=== PATIENT | female | born 2000 | race Hispanic/Latino ===

== ENCOUNTER 2020-12-23 15:20 | Outpatient (CLI) | payer OTHER | END 2020-12-23 15:21 | disposition home or self-care (01) | LOC: CSHULT 15:20 | PROVIDERS: ATTEND Family Medicine | DX: Z34.03 Encounter for supervision of normal first pregnancy, third trimester (principal) | CPT/HCPCS: 76805 ==

== ENCOUNTER 2021-11-05 13:36 | Emergency (ER) | payer OTHER ==
[2021-11-05 14:15] LABS: Bilirubin Neg (Negative); Blood, Urine Negative (Negative); Glucose, Urine (Dipstick) Normal (Negative); Ketone, Urine 5 mg/dL (Negative); Leukocyte 500 (Negative); Nitrite Negative (Negative); Protein, Urine (Dipstick) 15 mg/dl (Neg-Trace); Specific Gravity, Urine 1.025 (1.002-1.036); Urobilinogen Normal mg/dL (Less than 2)
[2021-11-05 14:19] LABS: Pregnancy Test - Urine (BHCG) POSITIVE (Negative); Pregu Control Background? CLEAR/WHITE (CLR/WHITE); Pregu Control Bar Appear? YES (CONTROL BAR); Specific Gravity 1.025 (1.002-1.036)
[2021-11-05 14:30] LABS: Bacteria/HPF None Seen HPF (None Seen); Mucous/LPF 1+ LPF (<2+); RBC/HPF None Seen HPF (0-3)
[2021-11-05 14:36] LABS: Clarity Hazy (Clear)
[2021-11-05 15:18] LABS: #Monocytes 0.4 10x3/uL (0.0-1.1); #Neutrophils 5.9 10x3/uL (1.5-8.4); %Basophils 0.2 % (0.0-2.0); %Eosinophils 0.2 % (0.0-6.0); %Lymphocytes 20.7 % (18.0-47.0); %Monocytes 5.5 % (0.0-10.0); %Neutrophils 73.3 % (40.0-75.0); Hemoglobin 13.3 g/dL (12.0-15.5); Mean Corpuscular HGB CONC 35.1 g/dL (32.0-36.0); Mean Corpuscular Hemoglobin 31.4 pg (27.0-33.0); Mean Corpuscular Volume 89.6 fl (81.6-98.3); Mean Platelet Volume 12.1 fl (7.4-10.4); Platelet Count 230 10x3/uL (150-450); RBC Distribution Width 12.7 % (11.5-14.5); Red Blood Cell (RBC) Count 4.23 10x6/uL (3.90-5.03); White Blood Cell (WBC) Count 8.1 10x3/uL (3.5-10.5)
[2021-11-05 15:32] LABS: ALT (SGPT) 11 U/L (8-55); AST (SGOT) 8 U/L (5-34); Albumin 3.9 g/dL (3.5-5.0); Alkaline Phosphatase 62 U/L (40-110); Anion Gap 11 mmol/L (10-20); BUN (Urea Nitrogen) 8 mg/dL (7.0-18.7); Bilirubin, Total 0.7 mg/dL (0.2-1.2); Calc. Creatinine Clearance 0 mL/min (70-130); Calcium 9.4 mg/dL (7.8-10.44); Carbon Dioxide 24 mmol/L (22-29); Chloride 105 mmol/L (98-107); Globulin 3.3 g/dL (2.4-3.5); Glucose 82 mg/dL (70-105); Lipase 18 U/L (8-78); Potassium 3.3 mmol/L (3.5-5.1); Protein, Total 7.2 g/dL (6.0-8.3); Sodium 137 mmol/L (136-145)
== END 2021-11-05 16:01 | disposition home or self-care (01) ==
LOC: CSHERS 13:36
DX: O20.8 Other hemorrhage in early pregnancy (principal); Z3A.12 12 weeks gestation of pregnancy
CPT/HCPCS: 36415; 80053; 81003; 81015; 81025; 83690; 84702; 85025; 86900; 86901